=== PATIENT | female | born 1975 | race Caucasian/White ===

== ENCOUNTER 2017-11-20 19:41 | Emergency (ER) | payer MEDICAID ==
[~2017-11-20] VITALS: Ht 165.1 cm; Wt 79.5 kg
[~2017-11-20 19:41] MED LIST: CYCL-1 PO; IBUP-1984 PO; LITH300C43 PO; NAPR500T6 PO; ONDA8TAB6 PO; ONDA8TAB9 PO; PSEU-225 PO; TES100C PO
[2017-11-20] MEDS ORDERED: levetiracetam inj 500 MG in normal saline 100ml IV soln 95 ML IV STA (19:52)
[2017-11-20] MEDS ORDERED: normal saline 1000ML IV soln IVB ONE (19:55)
[2017-11-20] MEDS ORDERED: LORazepam 2 mg/ml vial IV ONE (19:55)
[2017-11-20] MEDS ORDERED: PHEN100C4 PO (20:03)
[2017-11-20] MEDS ORDERED: LEVE10002 PO (20:04)
[2017-11-20 20:14] LABS: BASOPHILS % (AUTO) 0.5 % (0-1); EOSINOPHILS # (AUTO) 0.3 X10'3 (0-0.9); EOSINOPHILS % (AUTO) 4.2 % (0-6); HEMOGLOBIN 13.9 g/dl (12.0-16.0); LYMPHOCYTES # (AUTO) 3.1 X10'3 (1.1-4.8); LYMPHOCYTES % (AUTO) 38.4 % (21-51); MEAN CORPUSCULAR HEMOGLOBIN 30.5 PG (27.0-31.0); MEAN CORPUSCULAR VOLUME 89.8 FL (78-98); MEAN PLATELET VOLUME 7.2 FL (7.4-10.4); MONOCYTES # (AUTO) 0.5 X10'3 (0-0.9); MONOCYTES % (AUTO) 6.9 % (2-12); NEUTROPHILS # (AUTO) 4.1 X10'3 (1.8-7.7); PLATELET COUNT 340 X10'3 (140-440); RED BLOOD COUNT 4.57 X10'6 (4.20-5.60); RED CELL DISTRIBUTION WIDTH 13.4 % (11.5-14.5)
[2017-11-20 20:28] LABS: ALANINE AMINOTRANSFERASE 58 U/L (12-78); ALBUMIN 3.8 G/DL (3.4-5.0); ALBUMIN/GLOBULIN RATIO 1.2 (1.1-1.5); ALKALINE PHOSPHATASE 99 IU/L (46-116); ANION GAP 10 (8-16); ASPARTATE AMINO TRANSFERASE 24 U/L (10-37); BILIRUBIN,TOTAL 0.2 MG/DL (0.1-1.0); BLOOD UREA NITROGEN 9 MG/DL (7-18); BUN/CREATININE RATIO 12.7 (6.6-38.0); CALCIUM 9.1 MG/DL (8.5-10.1); CHLORIDE 105 MMOL/L (99-107); CREATININE 0.71 MG/DL (0.40-0.90); GLUCOSE 90 MG/DL (70-104); POTASSIUM 3.6 MMOL/L (3.5-5.1); SODIUM 141 MMOL/L (135-145); TOTAL CARBON DIOXIDE 26.1 MMOL/L (24-32); TOTAL PROTEIN 7.1 G/DL (6.4-8.2); eGFR > 90 ML/MIN
[2017-11-20] MEDS ORDERED: KEP500T PO (20:53)
[2017-11-20 20:57] VITALS: BP 134/85
== END 2017-11-20 21:04 | disposition home or self-care (01) ==
LOC: ER 19:42
DX: G40.909 Epilepsy, unspecified, not intractable, without status epilepticus (principal); G89.29 Other chronic pain; M79.645 Pain in left finger(s); Z87.442 Personal history of urinary calculi; Z90.49 Acquired absence of other specified parts of digestive tract; Z90.710 Acquired absence of both cervix and uterus; Z88.0 Allergy status to penicillin; Z88.8 Allergy status to other drugs, medicaments and biological substances; Z79.899 Other long term (current) drug therapy
CPT/HCPCS: 36415; 71045; 73140; 80053; 85025; 96361; 96374; 96375; 99285; J1953; J2060; J7030

== ENCOUNTER 2018-05-31 14:52 | Emergency (ER) | payer MEDICAID ==
[~2018-05-31] VITALS: Ht 165.1 cm; Wt 77.0 kg
[~2018-05-31 14:52] MED LIST changes: +BUTA-281 PO; -CYCL-1 PO; -IBUP-1984 PO; +LEVE750T6 PO; -LITH300C43 PO; -NAPR500T6 PO; -ONDA8TAB6 PO; -ONDA8TAB9 PO; +PHEN100C4 PO; -PSEU-225 PO; -TES100C PO
--- NOTE | 2018-05-31 19:01 | NUR ---
Patient charli SI/HI. She is feeling overwhelmingly depressed over the critical illness of her mother. She states she is struggling to get any sleep and feels that a few good nights would help quell her depression and anxiety. When asked what we can do for her, she states that she feels she needs someone to talk to or start medications to help with her symptoms.
[2018-05-31] MEDS ORDERED: DIAZ5TAB PO (19:19)
[2018-05-31] MEDS ORDERED: diazepam 5mg tablet PO ONE (19:20)
[2018-05-31 19:27] VITALS: BP 141/78
== END 2018-05-31 19:29 | disposition home or self-care (01) ==
LOC: ER 14:52
DX: F32.89 Other specified depressive episodes (principal); G47.00 Insomnia, unspecified; G89.29 Other chronic pain; F41.9 Anxiety disorder, unspecified; Z87.442 Personal history of urinary calculi; Z90.49 Acquired absence of other specified parts of digestive tract; Z98.890 Other specified postprocedural states; Z90.710 Acquired absence of both cervix and uterus; Z88.0 Allergy status to penicillin; Z88.6 Allergy status to analgesic agent; Z88.8 Allergy status to other drugs, medicaments and biological substances
CPT/HCPCS: 99284

== ENCOUNTER 2018-08-25 10:51 | Emergency (ER) | payer MEDICAID ==
[~2018-08-25] VITALS: Ht 165.1 cm; Wt 72.9 kg
[~2018-08-25 10:51] MED LIST changes: +DIAZ5TAB PO
[2018-08-25 12:10] LABS: BASOPHILS # (AUTO) 0.1 X10'3 (0-0.2); BASOPHILS % (AUTO) 0.8 % (0-1); EOSINOPHILS # (AUTO) 0.2 X10'3 (0-0.9); EOSINOPHILS % (AUTO) 1.8 % (0-6); HEMATOCRIT 41.1 % (35.0-45.0); HEMOGLOBIN 13.9 g/dl (12.0-16.0); LYMPHOCYTES # (AUTO) 2.6 X10'3 (1.1-4.8); LYMPHOCYTES % (AUTO) 24.3 % (21-51); MEAN CORPUSCULAR HEMOGLOBIN 30.8 PG (27.0-31.0); MEAN CORPUSCULAR HGB CONC 33.8 g/dL (33.0-36.5); MEAN CORPUSCULAR VOLUME 91.3 FL (78-98); MEAN PLATELET VOLUME 7.4 FL (7.4-10.4); MONOCYTES # (AUTO) 0.7 X10'3 (0-0.9); MONOCYTES % (AUTO) 6.9 % (2-12); NEUTROPHILS % (AUTO) 66.2 % (42-75); PLATELET COUNT 280 X10'3 (140-440); RED CELL DISTRIBUTION WIDTH 13.7 % (11.5-14.5); WHITE BLOOD COUNT 10.6 X10'3 (4.5-11.0)
[2018-08-25 12:21] LABS: ANION GAP 8 (8-16); BILIRUBIN,TOTAL 0.2 MG/DL (0.1-1.0); BLOOD UREA NITROGEN 15 MG/DL (7-18); BUN/CREATININE RATIO 23.4 (6.6-38.0); CALCIUM 9.1 MG/DL (8.5-10.1); CHLORIDE 105 MMOL/L (99-107); CREATININE 0.64 MG/DL (0.40-0.90); GLUCOSE 87 MG/DL (70-104); POTASSIUM 3.8 MMOL/L (3.5-5.1); SODIUM 141 MMOL/L (135-145); TOTAL CARBON DIOXIDE 27.8 MMOL/L (24-32); eGFR > 90 ML/MIN
[2018-08-25 12:22] LABS: ALANINE AMINOTRANSFERASE 21 U/L (12-78); ALBUMIN 3.8 G/DL (3.4-5.0); ALKALINE PHOSPHATASE 107 IU/L (46-116); ASPARTATE AMINO TRANSFERASE 14 U/L (10-37); TOTAL PROTEIN 7.6 G/DL (6.4-8.2)
[2018-08-25 12:31] LABS: ETHANOL < 0.010 GM/DL (0.0-0.010)
[2018-08-25 12:43] LABS: URINE HCG NEGATIVE (NEG)
[2018-08-25] MEDS ORDERED: PHEN100C4 PO (12:44)
[2018-08-25] MEDS ORDERED: LEVE10002 PO (12:45)
[2018-08-25] MEDS ORDERED: CLON-528 PO (12:52)
[2018-08-25] MEDS ORDERED: LURA20TA PO (12:55)
[2018-08-25 12:57] LABS: URINE AMPHETAMINE SCREEN NEGATIVE (Neg); URINE BARBITUATE SCREEN NEGATIVE (Neg); URINE BENZODIAZEPINES SCREEN POSITIVE (Neg); URINE CANNABINOID SCREEN NEGATIVE (Neg); URINE COCAINE SCREEN NEGATIVE (Neg); URINE METHADONE SCREEN NEGATIVE (Neg); URINE OPIATE SCREEN NEGATIVE (Neg); URINE PHENCYCLIDINE SCREEN NEGATIVE (Neg)
[2018-08-25] MEDS ORDERED: lurasidone 20mg tablet PO SCH (13:56)
--- NOTE | 2018-08-25 13:57 | NUR ---
Admit note: Pt admitted to overflow ER from Triage at 1130. Pt admitted on 179 for depression with S.I. Pt cooperative with admission process.
--- NOTE | 2018-08-25 14:06 | NUR ---
Since admission, pt resting quietly in bed without complaints.
[2018-08-25] MEDS: clonazePAM 0.5mg tablet PO PRN ×2 (14:14→22:01)
[2018-08-25] MEDS: phenytoin sod ER 100mg capsule PO SCH ×2 (14:15→20:11)
[2018-08-25 14:59] LABS: PHENYTOIN (DILANTIN) 6.8 UG/ML (10.0-20.0)
--- NOTE | 2018-08-25 15:00 | NUR ---
Pt resting quietly in bed. Pt given dilantin and Latuda per MD order. Pt requested klonopin for anxiety which she was given.
--- NOTE | 2018-08-25 17:00 | NUR ---
Pt resting quietly in bed without complaints.
[2018-08-25] MEDS ORDERED: lurasidone 20mg tablet PO ONE (19:05)
[2018-08-25] MEDS ORDERED: levetiracetam 250mg tablet PO SCH (20:00)
[2018-08-25] MEDS ORDERED: diazepam 5mg tablet PO SCH (21:00)
--- NOTE | 2018-08-25 21:21 | NUR ---
Packet faxed to [facility]. Confirmed receipt of packet with Jennifer @ [facility] office.
--- NOTE | 2018-08-25 22:17 | NUR ---
Pt engaged in psychosocial assessment with [facility] currently.
[2018-08-25 23:30] VITALS: BP 111/75
[2018-08-26] MEDS ORDERED: lurasidone 20mg tablet PO SCH (08:00)
== END 2018-08-25 23:57 | disposition home or self-care (01) ==
LOC: ER 10:51
DX: R45.851 Suicidal ideations (principal); G89.29 Other chronic pain; F41.9 Anxiety disorder, unspecified; F31.9 Bipolar disorder, unspecified; Z90.49 Acquired absence of other specified parts of digestive tract; Z90.710 Acquired absence of both cervix and uterus; Z88.0 Allergy status to penicillin; Z88.6 Allergy status to analgesic agent; Z88.8 Allergy status to other drugs, medicaments and biological substances; Z79.899 Other long term (current) drug therapy
CPT/HCPCS: 36415; 80053; 80185; 80305; 80320; 81025; 84443; 85025; 99284